=== PATIENT | female | born 1990 | race Hispanic/Latino ===

== ENCOUNTER 2022-08-18 15:22 | Emergency (ER) | payer OTHER, SELFPAY ==
[2022-08-18] MEDS ORDERED: Ketorolac Tromethamine 30 MG/ML VIAL ONE (16:03)
== END 2022-08-18 16:32 ==
LOC: ERS 15:22
DX: S80.01XA Contusion of right knee, initial encounter (principal); S13.4XXA Sprain of ligaments of cervical spine, initial encounter; V85.5XXA Driver of special construction vehicle injured in nontraffic accident, initial encounter
CPT/HCPCS: 72125; 96372; J1885

== ENCOUNTER 2023-12-27 06:39 | Emergency (ER) | payer BC, SELFPAY ==
[2023-12-27] MEDS ORDERED: Dexamethasone 10 MG/ML VIAL ONE (07:04)
[2023-12-27 07:19] LABS: Bacteria/HPF None Seen HPF (None Seen); Bilirubin Negative (Negative); Blood, Urine Negative (Negative); CAUTI Indications for Culture Pelvic or flank pain; Clarity Clear (Clear); Glucose, Urine (Dipstick) Normal (Negative); Ketone, Urine 10 mg/dL (Negative); Leukocyte Negative Leu/uL (Negative); Nitrite Negative (Negative); Protein, Urine (Dipstick) Negative (Neg-Trace); RBC/HPF 0-3 HPF (0-3); Specific Gravity, Urine 1.028 (1.002-1.036); Urobilinogen Normal mg/dL (Less than 2)
[2023-12-27 07:22] LABS: Sperm/HPF 2+ HPF (None Seen)
[2023-12-27 07:28] LABS: Urine Culture Reflex No No
[2023-12-27 07:53] LABS: Influenza A by NAA Not Detected (NotDetected); Influenza B by NAA Not Detected (NotDetected); SARS-CoV-2 NAA Rapid Test Not Detected (NotDetected)
== END 2023-12-27 07:50 | disposition home or self-care (01) ==
LOC: ERS 06:39
DX: B34.9 Viral infection, unspecified (principal); N39.0 Urinary tract infection, site not specified; I10 Essential (primary) hypertension; Z79.899 Other long term (current) drug therapy
CPT/HCPCS: 81001; 87081; 87430; 99283; J1100